=== PATIENT | female | born 1990 | race Caucasian/White ===

== ENCOUNTER → 2024-01-27 | Outpatient (CLI) | payer BC ==
--- NOTE | 2024-02-08 05:35 | HM ---
HOLTER MONITOR REPORT The patient was monitored for 24 hours. CLINICAL INFORMATION: Baseline rhythm is a sinus mechanism with normal conduction. The average rate 85 beats per minute, minimum 66, maximum 148 beats per minute. Ventricular ectopic activity was present in the form of rare single PVCs. Supraventricular ectopic activity was present in the form of rare single PACs. No symptoms were reported. CONCLUSION: 1. Sinus mechanism baseline rhythm. 2. Rare ventricular ectopic activity. 3. Rare supraventricular ectopic activity. 4. No symptoms were reported. MMODL / IJN: [id number] /
== END | disposition home or self-care (01) ==
LOC: RADECHMAIN 07:22
PROVIDERS: ATTEND Family Medicine
DX: I49.3 Ventricular premature depolarization (principal); R00.0 Tachycardia, unspecified
CPT/HCPCS: 93225; 93226